=== PATIENT | female | born 1975 | race Hispanic/Latino ===

== ENCOUNTER 2020-10-20 15:22 | Emergency (ER) | payer OTHER, SELFPAY ==
[2020-10-20] MEDS ORDERED: ACETAMINOPHEN EXTRA STRENGTH 500 MG TABLET ONE (16:13)
[2020-10-20] MEDS ORDERED: CYCLOBENZAPRINE HCL 10 MG TABLET ONE (16:13)
[2020-10-20 16:17] LABS: BASOPHILS % (AUTO) 0.4 % (0.0-5.0); EOSINOPHILS % (AUTO) 1.8 % (0.0-8.0); HEMATOCRIT 38.9 % (36-48); LYMPHOCYTES % (AUTO) 20.9 % (21.0-51.0); MEAN CORPUSCULAR HEMOGLOBIN 30.5 pg (27.0-33.0); MEAN CORPUSCULAR HGB CONC 33.7 g/dL (32.0-36.0); MEAN CORPUSCULAR VOLUME 90.7 fL (79-99); MONOCYTES % (AUTO) 6.6 % (3.0-13.0); PLATELET COUNT (AUTO) 231 K/uL (130-400); RED BLOOD CELL COUNT(AUTO) 4.29 MIL/uL (4.00-5.50); RED CELL DISTRIBUTION WIDTH 13.6 % (11.0-15.5); WHITE BLOOD COUNT (AUTO) 7.3 K/uL (4.8-10.8)
[2020-10-20 16:33] LABS: CREATININE 0.7 mg/dL (0.5-1.5); POTASSIUM 3.8 mmol/L (3.5-5.1)
[2020-10-20 16:36] LABS: INR 2.31 (0.85-1.15); PROTHROMBIN TIME 22.9 SEC (9.6-11.6)
[2020-10-20 16:37] LABS: PARTIAL THROMBOPLASTIN TIME 56.1 SEC (26.3-35.5)
[2020-10-20 16:39] LABS: ALBUMIN 3.9 g/dL (3.5-5.0); BILIRUBIN,TOTAL 0.3 mg/dL (0.2-1.0); TOTAL PROTEIN, SERUM 7.5 g/dL (6.0-8.3)
== END 2020-10-20 17:17 | disposition home or self-care (01) ==
LOC: EDH 15:22
DX: S16.1XXA Strain of muscle, fascia and tendon at neck level, initial encounter (principal); X58.XXXA Exposure to other specified factors, initial encounter; Y93.89 Activity, other specified; Y92.89 Other specified places as the place of occurrence of the external cause; Y99.8 Other external cause status
CPT/HCPCS: 36415; 80053; 85025; 85610; 85730

== ENCOUNTER 2022-06-29 14:56 | Observation (INO) | payer OTHER ==
[~2022-06-29] VITALS: Ht 167.6 cm; Wt 72.0 kg
[2022-06-29] MEDS ORDERED: LORAZEPAM 1 MG TABLET PO ONE (15:30)
[2022-06-29 15:52] LABS: BASOPHILS % (AUTO) 0.8 % (0.0-5.0); EOSINOPHILS % (AUTO) 3.8 % (0.0-8.0); HEMATOCRIT 34.4 % (36-48); LYMPHOCYTES % (AUTO) 23.7 % (21.0-51.0); MEAN CORPUSCULAR HEMOGLOBIN 30.4 pg (27.0-33.0); MEAN CORPUSCULAR HGB CONC 33.7 g/dL (32.0-36.0); MEAN CORPUSCULAR VOLUME 90.1 fL (79-99); MONOCYTES % (AUTO) 8.9 % (3.0-13.0); NEUTROPHILS % (AUTO) 62.5 % (40.0-77.0); PLATELET COUNT (AUTO) 173 K/uL (130-400); RED BLOOD CELL COUNT(AUTO) 3.82 MIL/uL (4.00-5.50); RED CELL DISTRIBUTION WIDTH 13.4 % (11.0-15.5); WHITE BLOOD COUNT (AUTO) 7.9 K/uL (4.8-10.8)
[2022-06-29] MEDS ORDERED: ENOXAPARIN SODIUM 80 MG/0.8 ML SQ SCH (16:00)
[2022-06-29 16:03] LABS: CREATININE 0.7 mg/dL (0.5-1.5); POTASSIUM 3.6 mmol/L (3.5-5.1)
[2022-06-29 16:12] LABS: ALBUMIN 3.4 g/dL (3.5-5.0); CRP QUANTITATIVE 27.6 mg/L (0.00-9.0); TOTAL PROTEIN, SERUM 6.7 g/dL (6.0-8.3)
[2022-06-29 16:13] LABS: APPEARANCE,URINE CLEAR (CLEAR); BILIRUBIN,URINE NEGATIVE (NEGATIVE); COLOR,URINE COLORLESS (YELLOW); GLUCOSE, URINE (UA) NEGATIVE (NEGATIVE); KETONES,URINE NEGATIVE (NEGATIVE); LEUKOCYTE ESTERASE ,URINE NEGATIVE Leu/uL (NEGATIVE); NITRATE,URINE NEGATIVE (NEGATIVE); OCCULT BLOOD,URINE SMALL (NEGATIVE); PROTEIN,URINE NEGATIVE (NEGATIVE); UROBILINOGEN,URINE 0.2 mg/dL (0.2-1.0)
[2022-06-29 16:36] LABS: BACTERIA,URINE RARE /HPF (None Seen); RBC,URINE 0-1 /HPF (0-1); SQUAMOUS EPITHELIAL CELL,UR RARE /HPF (0-2); WBC,URINE 0-1 /HPF (0-1)
[2022-06-29 16:41] LABS: INR 1.06 (0.85-1.15); PROTHROMBIN TIME 11.5 SEC (9.6-11.6)
[2022-06-29 16:42] LABS: PARTIAL THROMBOPLASTIN TIME 33.9 SEC (26.3-35.5)
[2022-06-29] MEDS ORDERED: ONDANSETRON 4MG INJ IVP PRN (17:00)
[2022-06-29] MEDS ORDERED: LABETALOL 20MG SYG IV PRN (17:00)
[2022-06-29] MEDS ORDERED: ALBUTEROL INHALER 90MCG/INH IH PRN (17:00)
[2022-06-29] MEDS ORDERED: LACTULOSE 20 GM/30 ML UDCUP PO PRN (17:00)
[2022-06-29] MEDS ORDERED: HYDRALAZINE 20MG/ML VIAL IV PRN (17:00)
[2022-06-29 18:00] VITALS: BP 115/58
[2022-06-29] MEDS ORDERED: FLUO20CA30 PO (18:54)
[2022-06-29 20:02] VITALS: BP 131/65
[2022-06-29] MEDS: INSULIN HUMULIN R 100 UNIT/ML 3ML SQ SCH (21:00)
[2022-06-29] MEDS: FAMOTIDINE 20MG TAB PO SCH (21:48)
[2022-06-29] MEDS: ENOXAPARIN SODIUM 80 MG/0.8 ML SQ SCH (21:50)
[2022-06-29] MEDS: ACETAMINOPHEN 325 MG TAB PO PRN (21:53)
[2022-06-29] MEDS ORDERED: ALPRAZOLAM 0.25 MG TABLET PO PRN (23:30)
[2022-06-29 23:39] VITALS: BP 106/54
[2022-06-30] MEDS ORDERED: IOHEXOL 350 MG/ML 100ML INFUS..BTL IV ONE (00:02)
[2022-06-30 03:45] VITALS: BP 103/67
[2022-06-30 05:09] LABS: BASOPHILS % (AUTO) 0.9 % (0.0-5.0); EOSINOPHILS % (AUTO) 4.1 % (0.0-8.0); HEMATOCRIT 34.2 % (36-48); LYMPHOCYTES % (AUTO) 29.2 % (21.0-51.0); MEAN CORPUSCULAR HEMOGLOBIN 30.7 pg (27.0-33.0); MEAN CORPUSCULAR HGB CONC 33.9 g/dL (32.0-36.0); MEAN CORPUSCULAR VOLUME 90.5 fL (79-99); MONOCYTES % (AUTO) 9.6 % (3.0-13.0); NEUTROPHILS % (AUTO) 55.8 % (40.0-77.0); PLATELET COUNT (AUTO) 182 K/uL (130-400); RED BLOOD CELL COUNT(AUTO) 3.78 MIL/uL (4.00-5.50); RED CELL DISTRIBUTION WIDTH 13.4 % (11.0-15.5); WHITE BLOOD COUNT (AUTO) 6.8 K/uL (4.8-10.8)
[2022-06-30 05:20] LABS: CREATININE 0.6 mg/dL (0.5-1.5); MAGNESIUM 1.7 mg/dL (1.80-2.40); PHOSPHORUS 4.1 mg/dL (2.5-4.9); POTASSIUM 3.9 mmol/L (3.5-5.1)
[2022-06-30 05:26] LABS: B-TYPE NATRIURETIC PEPTIDE 137 pg/mL (0-100)
[2022-06-30 08:00] VITALS: BP 125/69
[2022-06-30] MEDS: FAMOTIDINE 20MG TAB PO SCH ×2 (08:17→21:32)
[2022-06-30] MEDS: ENOXAPARIN SODIUM 80 MG/0.8 ML SQ SCH (08:18)
[2022-06-30] MEDS: POLYETHYLENE GLYCOL 3350 17 GM POWD.PACK PO SCH (08:18)
[2022-06-30] MEDS: INSULIN HUMULIN R 100 UNIT/ML 3ML SQ SCH ×3 (11:30→21:00)
[2022-06-30 12:00] VITALS: BP 119/65
[2022-06-30] MEDS: ACETAMINOPHEN 325 MG TAB PO PRN (15:07)
[2022-06-30 16:00] VITALS: BP 117/68
[2022-06-30 19:53] VITALS: BP 102/60
[2022-06-30] MEDS ORDERED: FLUOXETINE HCL 20 MG CAPSULE PO SCH (21:00)
[2022-06-30] MEDS: APIXABAN 5 MG TABLET PO SCH (21:32)
[2022-06-30 23:52] VITALS: BP 103/66
[2022-07-01 03:40] VITALS: BP 116/70
[2022-07-01 05:17] LABS: BASOPHILS % (AUTO) 0.6 % (0.0-5.0); EOSINOPHILS % (AUTO) 2.9 % (0.0-8.0); HEMATOCRIT 37.6 % (36-48); LYMPHOCYTES % (AUTO) 23.8 % (21.0-51.0); MEAN CORPUSCULAR HEMOGLOBIN 30.4 pg (27.0-33.0); MEAN CORPUSCULAR HGB CONC 33.5 g/dL (32.0-36.0); MEAN CORPUSCULAR VOLUME 90.6 fL (79-99); MONOCYTES % (AUTO) 9.2 % (3.0-13.0); NEUTROPHILS % (AUTO) 63.2 % (40.0-77.0); PLATELET COUNT (AUTO) 199 K/uL (130-400); RED BLOOD CELL COUNT(AUTO) 4.15 MIL/uL (4.00-5.50); RED CELL DISTRIBUTION WIDTH 13.5 % (11.0-15.5); WHITE BLOOD COUNT (AUTO) 6.9 K/uL (4.8-10.8)
[2022-07-01 05:49] LABS: ALBUMIN 3.2 g/dL (3.5-5.0); CREATININE 0.6 mg/dL (0.5-1.5); POTASSIUM 3.8 mmol/L (3.5-5.1); TOTAL PROTEIN, SERUM 6.7 g/dL (6.0-8.3)
[2022-07-01] MEDS: INSULIN HUMULIN R 100 UNIT/ML 3ML SQ SCH ×3 (06:32→16:30)
[2022-07-01 08:00] VITALS: BP 110/66
[2022-07-01] MEDS: FAMOTIDINE 20MG TAB PO SCH (09:21)
[2022-07-01] MEDS: APIXABAN 5 MG TABLET PO SCH (09:21)
[2022-07-01] MEDS: POLYETHYLENE GLYCOL 3350 17 GM POWD.PACK PO SCH (09:21)
[2022-07-01 12:00] VITALS: BP 108/61
[2022-07-01] MEDS ORDERED: APIX5TAB PO (15:52)
[2022-07-01 16:00] VITALS: BP 111/63
== END 2022-07-01 17:15 | disposition home or self-care (01) ==
LOC: EDH 14:56 → INTOOBSV 14:57 → EDHIP 14:57 → OBSVTOIN 14:57 → EDH 15:46 → 3BH 18:20
PROVIDERS: ADMIT Internal Medicine Critical Care Medicine; ATTEND Internal Medicine Critical Care Medicine
DX: I26.99 Other pulmonary embolism without acute cor pulmonale (principal); F41.9 Anxiety disorder, unspecified; F32.A Depression, unspecified; I27.82 Chronic pulmonary embolism; I82.422 Acute embolism and thrombosis of left iliac vein; Z79.01 Long term (current) use of anticoagulants; Z86.718 Personal history of other venous thrombosis and embolism; Z79.899 Other long term (current) drug therapy; Z98.890 Other specified postprocedural states; Z79.4 Long term (current) use of insulin
CPT/HCPCS: 96372 ×2; 99285; 84484; 80053 ×2; 85025 ×3; 85610; 85730; 86140; 81001; 36415 ×3; 71045; 71275; 74177; 93971; 93005; 83735; 84100; 80048; 83880; 82948 ×5; 93306; 93356; 84145; G0378 ×48; J1650 ×3; Q9967